=== PATIENT | female | born 1935 | race American Indian/Alaskan Native ===

== ENCOUNTER 2017-06-11 19:15 | Inpatient (IN) | payer MEDICARE ==
--- NOTE | 2017-06-11 20:51 | ED PDOC ---
Arrival/HPI - General Chief Complaint: Lower Extremity Problem/Injury Time Seen by Provider: 06/11/17 19:26 Historian: Patient - History of Present Illness Narrative History of Present Illness (Text): 06/11/17 20:40 A 81 year old female, whose past medical history include colon cancer, bowel resection, TIA, presents to the emergency department complaining of progressively worsening leg swelling over the past week. Patient was seen by PMD today, who instructed her to come in for further evaluation and possible admission. Patient notes mild discomfort but denies any recent injuries, trauma , fever, chills, nausea, vomiting, abdominal pain, chest pain, shortness of breath or any other complaints. Patient uses cane to ambulate at baseline. 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,) - Genitourinary/Gynecological Hx Genitourinary Disorders: Yes Hx Reproductive Disorders: No - Psychiatric Hx Substance Use: No - Past Surgical History Past Surgical History: No Previous - Anesthesia Hx Anesthesia Reactions: No Hx Malignant Hyperthermia: No - Suicidal Assessment Feels Threatened In Home Enviroment: No Family/Social History - Physician Review Nursing Documentation Reviewed: Yes Family/Social History: No Known Family HX Smoking Status: Never Smoked Hx Alcohol Use: No Hx Substance Use: No Hx Substance Use Treatment: No Allergies/Home Meds Allergies/Adverse Reactions: Allergies No Known Allergies Allergy (Verified 06/11/17 19:31) Home Medications: Home Meds Medication Instructions Recorded Confirmed Timolol 0.5% Ophth [Timoptic 0.5% 1 drop OP BID 12/08/13 06/11/17 Ophth Soln] Travoprost [Travatan 5 ml] 1 drop OP HS 12/08/13 06/11/17 Review of Systems - Physician Review All systems were reviewed & negative as marked: Yes - Review of Systems Constitutional: absent: Fevers, Night Sweats Respiratory: absent: SOB Cardiovascular: Edema (LE swelling). absent: Chest Pain Gastrointestinal: absent: Abdominal Pain, Nausea, Vomiting Physical Exam Vital Signs Reviewed: Yes Vital Signs Temp Pulse Resp BP Pulse Ox 06/11/17 22:26 67 16 172/80 H 99 06/11/17 21:26 68 16 166/82 H 100 06/11/17 19:31 98.8 F 79 18 198/83 H 97 Temperature: Afebrile Blood Pressure: Hypertensive Pulse: Regular Respiratory Rate: Normal Appearance: Positive for: Well-Appearing, Non-Toxic, Comfortable Pain Distress: None Mental Status: Positive for: Alert and Oriented X 3 - Systems Exam Head: Present: Atraumatic, Normocephalic Pupils: Present: PERRL Extroacular Muscles: Present: EOMI Conjunctiva: Present: Normal Mouth: Present: Moist Mucous Membranes Neck: Present: Normal Range of Motion Respiratory/Chest: Present: Clear to Auscultation, Good Air Exchange. No: Respiratory Distress, Accessory Muscle Use Cardiovascular: Present: Regular Rate and Rhythm, Normal S1, S2. No: Murmurs Abdomen: No: Tenderness, Distention, Peritoneal Signs Back: Present: Normal Inspection Upper Extremity: Present: Normal Inspection. No: Cyanosis, Edema Lower Extremity: Present: Edema (Bilateral lower extremity edema, extending to thighs), NORMAL PULSES. No: CALF TENDERNESS, Brennen's Sign Neurological: Present: GCS=15, CN II-XII Intact, Speech Normal. No: Other ( focal neurological deficits) Skin: Present: Warm, Dry, Normal Color. No: Rashes Psychiatric: Present: Alert, Oriented x 3, Normal Insight, Normal Concentration Medical Decision Making ED Course and Treatment: 06/11/17 20:40 Impression: A 81 year old female with worsening bilateral lower extremity swelling Plan: -- Duplex lower extremity ultrasound -- Chest xray -- EKG -- Labs -- Reassess and disposition Progress Notes: 06/11/17 22:07 Reviewed EKG, NSR at 68 bpm. 1st degree AV block. Non-specific ST/T wave changes. 06/11/17 22:15 Chest X-Ray reviewed, shows poor inspiratory film, questionable pulmonary vascular congestion. 06/11/17 23:08 US Duplex Lower Extremity negative for DVT. 06/11/17 23:[address] Nuno, who is aware and agrees with plan. Accepts pt in to her service. Pt will go to [facility] observation for leg edema. - Lab Interpretations Lab Results: 06/11/17 21:26 06/11/17 21:26 Lab Results 06/11/17 21:26: WBC 7.2, RBC 4.42, Hgb 12.3, Hct 37.6, MCV 85.1, MCH 27.8, MCHC 32.7, RDW 15.1 H, Plt Count 177, MPV 10.8 06/11/17 21:26: Sodium 146, Potassium 4.5, Chloride 107, Carbon Dioxide 27, Anion Gap 16, BUN 13, Creatinine 1.1, Est GFR ( Amer) 57, Est GFR (Non- Af Amer) 47, Random Glucose 109, Calcium 9.0, Total Bilirubin 0.7, AST 40 H, ALT 20, Alkaline Phosphatase 96, Lactate Dehydrogenase 688, Total Creatine Kinase 57, Troponin I < 0.01, NT-Pro-B Natriuret Pep 206, Total Protein 7.9, Albumin 4.1, Globulin 3.8, Albumin/Globulin Ratio 1.1 06/11/17 21:26: PT 11.2, INR 0.98, APTT 21.0 L I have reviewed the lab results: Yes - RAD Interpretation Radiology Orders: 06/11/17 20:17 CHEST PORTABLE [RAD] Stat DUPLEX LOWER EXTRM VEIN BILAT [US] Stat Roller Hand: ED Physician - EKG Interpretation Interpreted by ED Physician: Yes Type: 12 lead EKG - Medication Orders Current Medication Orders: Furosemide (Lasix) 40 mg IVP ONCE ONE Stop: 06/11/17 23:21 - Scribe Statement The provider has reviewed the documentation as recorded by the Scribe Radha Miranda Provider Scribe Attestation: All medical record entries made by the Scribe were at my direction and personally dictated by me. I have reviewed the chart and agree that the record accurately reflects my personal performance of the history, physical exam, medical decision making, and the department course for this patient. I have also personally directed, reviewed, and agree with the discharge instructions and disposition. Disposition/Present on Arrival - Present on Arrival Any Indicators Present on Arrival: No History of DVT/PE: No History of Uncontrolled Diabetes: No Urinary Catheter: No History of Decub. Ulcer: No History Surgical Site Infection Following: None - Disposition Have Diagnosis and Disposition been Completed?: Yes Diagnosis: Bilateral leg edema Disposition: HOSPITALIZED Disposition Time: 23:24 Patient Plan: Observation Condition: STABLE Referrals: Alannah Nuno MD [Primary Care Provider] - Follow up with primary Forms: [employer] ([employer])
[2017-06-11 21:32] LABS: HEMOGLOBIN 12.3 g/dL (12.0-16.0); MEAN CELL VOLUME 85.1 fl (80.0-105.0); MEAN CORPUSCULAR HEMOGLOBIN 27.8 pg (25.0-35.0); MEAN CORPUSCULAR HGB CONC 32.7 g/dl (31.0-37.0); MEAN PLATELET VOLUME 10.8 fl (7.0-11.0); RBC 4.42 10^6/uL (3.5-6.1); RED CELL DISTRIBUTION WIDTH 15.1 % (11.5-14.5); WHITE BLOOD COUNT 7.2 10^3/ul (4.5-11.0)
[2017-06-11 21:46] LABS: GFR AFRICAN-AMERICAN 57; GFR NON-AFRICAN AMERICAN 47
[2017-06-11 21:50] LABS: ALB/GLOB RATIO 1.1 (1.1-1.8); ALBUMIN 4.1 g/dL (3.0-4.8); ALT/SGPT 20 U/L (7-56); AST/SGOT 40 U/L (14-36); BLOOD UREA NITROGEN 13 mg/dL (7-21)
[2017-06-11 21:56] LABS: B-TYPE NATRIURETIC PEPTIDE 206 pg/mL (0-450)
[2017-06-11 22:03] LABS: TROPONIN I < 0.01 ng/mL
[2017-06-11 22:04] LABS: INR 0.98 (0.93-1.08); PROTHROMBIN TIME 11.2 SECONDS (9.4-12.5)
[2017-06-12 03:26] VITALS: BMI 41.2
--- NOTE | 2017-06-12 08:35 | RAD ---
HISTORY: medical clearance COMPARISON: 12/22/2013. FINDINGS: LUNGS: The lungs are clear. There is a linear scar in the right mid lung. PLEURA: No significant pleural effusion identified, no pneumothorax apparent. CARDIOVASCULAR: There is mild cardiomegaly. OSSEOUS STRUCTURES: No significant abnormalities. VISUALIZED UPPER ABDOMEN: Normal. OTHER FINDINGS: None. IMPRESSION: No active pulmonary disease.
--- NOTE | 2017-06-12 09:42 | US ---
HISTORY: Leg pain and swelling. Evaluate for DVT PHYSICIAN(S): Wing Baker MD. TECHNIQUE: Duplex sonography and color-flow Doppler with graded compression were used to evaluate the deep venous systems of both lower extremities. The exam is limited by body habitus and edema. The tibial veins are not well seen FINDINGS: The visualized deep venous systems of both lower extremities are sonographically normal and compressible. Normal wave forms and augmentation are seen. There is no sonographic evidence for deep venous thrombosis in the visualized segments of both lower extremities. IMPRESSION: No sonographic evidence for deep venous thrombosis in the visualized segments of both lower extremities. Limited study.
[2017-06-12 10:04] LABS: HDL CHOLESTEROL 58 mg/dL (29-60)
[2017-06-12 10:05] LABS: IRON 45 ug/dL (45-180)
[2017-06-12 10:14] LABS: LDL CHOLESTEROL 65 mg/dL (0-129)
[2017-06-12 10:15] LABS: % IRON SATURATION 14 % (20-55); TOTAL IRON BINDING CAPACITY 316 ug/dL (265-497)
--- NOTE | 2017-06-12 14:38 | CARD ---
APPROVED REPORT EKG Measurement Heart [id number] NV [id number] <Conclusion> Sinus rhythm with sinus arrhythmia with 1st degree AV block Minimal voltage criteria for LVH, may be normal variant Borderline ECG
[2017-06-12 17:16] LABS: FOLATE 12.2 ng/mL
--- NOTE | 2017-06-12 17:37 | CARD ---
APPROVED REPORT EXAM: Two-dimensional and M-mode echocardiogram with Doppler and color Doppler. Surgery/Intervention PRE-OP/ LVFX 2D DIMENSIONS Left Atrium (2D)4.7 (1.6-4.0cm)IVSd1.0 (0.7-1.1cm) LVDd5.4 (3.9-5.9cm)PWd1.1 (0.7-1.1cm) LVDs3.6 (2.5-4.0cm)FS (%) 33.2 % LVEF (%)61.4 (>50%) M-Mode DIMENSIONS Aortic Root3.40 (2.2-3.7cm)Aortic Cusp Exc.1.70 (1.5-2.0cm) Aortic Valve AoV Peak Rtmzddzz756.0cm/sAoV VTI49.8cmAO Peak GR.16mmHg LVOT Peak Ywiohcff276.0cm/sLVOT VTI30.20cmAO Mean GR.9mmHg Mitral Valve MV E Qfveffri61.6cm/sMV A Tmobwvsj77.7cm/sE/A ratio0.5 TDI Lateral E' Peak V8.29cm/sMedial E' Peak V4.68cm/sE/Lateral E'5.6 E/Medial E'10.0 Pulmonary Valve PV Peak Nammvuaq72.0cm/sPV Peak Grad.2mmHg Tricuspid Valve TR Peak Bchhlofw467et/sRAP [id number] Peak Gr.61mmHg CXSP07poOc LEFT VENTRICLE The left ventricle is normal size. There is normal left ventricular wall thickness. The left ventricular function is normal.EF-55-60% There is normal LV segmental wall motion. Transmitral Doppler flow pattern is Grade III-reversible restrictive diastolic dysfunction. No left ventricle thrombus noted on this study. There is no ventricular septal defect visualized. There is no left ventricular aneurysm. There is no mass noted in the left ventricle. RIGHT VENTRICLE The right ventricle is mildly to moderately dilated. There is normal right ventricular wall thickness. Systolic function of RV is mildly to moderately reduced. ATRIA The left atrium is mildly dilated. The right atrium size is normal. AORTIC VALVE The aortic valve is calcified but opens well. The aortic valve is mildly to moderately sclerotic. There is trace aortic regurgitation. Aortic Sclerosis Vs miold There is no aortic valvular vegetation. MITRAL VALVE The mitral valve is thickened but opens well. Mitral regurgitation is trace. There is no mitral valve stenosis. There is no evidence of mitral valve prolapse. TRICUSPID VALVE The tricuspid valve leaflets are thickened , but open well. There is moderate tricuspid regurgitation.RVSP-71 mmof hg. There is moderate pulmonary hypertension. There is no tricuspid valve stenosis. There is no tricuspid valve prolapse or vegetation. PULMONIC VALVE The pulmonic valve is mildly thickened. There is mild to moderate pulmonic valvular regurgitation. There is no pulmonic valvular stenosis. GREAT VESSELS The aortic root is normal in size. The ascending aorta is normal in size. The pulmonary artery is normal. The IVC is normal in size and collapses >50% with inspiration. PERICARDIAL EFFUSION There is no pleural effusion. There is no pericardial effusion. <Conclusion> The left ventricle is normal size. There is normal left ventricular wall thickness. The left ventricular function is normal.EF-55-60% The right ventricle is mildly to moderately dilated. Systolic function of RV is mildly to moderately reduced. There is trace aortic regurgitation. Aortic Sclerosis Vs miold Mitral regurgitation is trace. There is moderate tricuspid regurgitation.RVSP-71 mmof hg. There is moderate pulmonary hypertension. There is mild to moderate pulmonic valvular regurgitation. The IVC is normal in size and collapses >50% with inspiration. There is no pericardial effusion. No vegetation or thrombus noted.
--- NOTE | 2017-06-12 18:07 | CON ---
DATE: 06/12/2017 NEUROLOGY CONSULT CHIEF COMPLAINT: Evaluation for neuropathy. 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 No changes in sense of vision, taste or smell. She is sitting up in chair, in no acute distress, follows all commands, moves all extremities. Her lower extremities do feel swelling and there is 2+ edema. Her blood pressure is systolically mildly high than her baseline. 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 REVIEW OF SYSTEMS: A 14-point review of systems negative except as per the HPI. FAMILY HISTORY: Noncontributory. SOCIAL HISTORY: No illicit drug use, smoking or EtOH abuse. ALLERGIES: NO KNOWN DRUG ALLERGIES. MEDICATIONS: Reviewed by nurse per reconciliation sheet. PHYSICAL EXAMINATION: VITAL SIGNS: Temperature 98.6, pulse is 86, blood pressure 126/60, respiratory rate 18, oxygen saturation 99% by room air. GENERAL: The patient is sitting up in bed, in no acute distress. HEENT: Head is atraumatic and normocephalic. PERRLA. Extraocular muscles intact. NECK: Supple. No JVD. No adenopathy noted. LUNGS: Clear to auscultation. No adventitious sounds. HEART: S1, S2. Normal rate and rhythm. No murmurs, rubs, or gallops. ABDOMEN: Soft, nontender, and nondistended. Bowel sounds present. EXTREMITIES: No clubbing. No cyanosis. Peripheral pulses 2+ felt bilaterally, 2+ pedal edema bilaterally. NEUROLOGIC: The patient is alert and oriented to person, place, month, and year. Speech is fluent without any errors. Cranial nerves II through XII intact. Poor attention span, slow thought process. Motor exam: Moves all extremities equally. No pronator drift seen. Sensory exam: Light touch to pinprick, decreased at the calves bilaterally. Decreased vibration of the toes. DTRs are 2+ throughout, 1 at both knees and ankles. Coordination: Wgkiuj-nj-xzou intact. No dysmetria noted. Gait is deferred for now. LABORATORY DATA: Sodium , potassium 2.7, BUN 13, creatinine 1.1, random glucose of 109, A1c is 5.8. ASSESSMENT AND PLAN: An 81-year-old woman, history of adenocarcinoma of the transverse colon as well as gastric adenocarcinoma status post hemicolectomy, history of hypertension with bilateral carpal tunnel syndrome in the hands, who came here for worsening leg weakness over the past week and ultrasound of the lower extremities showed no deep vein thrombosis, currently she has some features of peripheral neuropathy on examination. At this time, we will recommend outpatient EMG nerve conduction study neuropathy. Continue to evaluate management of her lower extremity swelling. She is on Lasix 40 mg IV every 12. Physical therapy/occupational therapy assessment. Thank you for this consultation. Can Ulloa MD
[2017-06-12] MEDS: Latanoprost 2.5 ml Opht Soln OU SCH (21:54)
[2017-06-12] MEDS: Insulin Reg-LOW-Coverage SC SCH (22:20)
--- NOTE | 2017-06-13 02:59 | CON ---
DATE: REASON FOR CONSULTATION AND FOLLOWUP: Cardiac evaluation, admitted with bilateral lower extremity swelling, rule out CHF. BRIEF CLINICAL HISTORY: This is an 81-year-old female with past medical history significant for colon cancer, status post bowel resection 4 years ago, came in with history of right lower leg cellulitis, bitten by the mosquito and later on the skin formed and then the skin regenerated again, treated medically. No history of myocutaneous graft or skin graft who used to see Dr. Nuno, went to see, and complaining of leg swelling, so patient sent for evaluation workup. The patient denies any chest pain, shortness of breath or any palpitation though walked not much, walk with a cane. PAST MEDICAL HISTORY: Significant for leg swelling, history of skin after bitten with the mosquito and had treated medically, history of colon cancer status post colonic resection and end-to-end anastomosis 4 years ago. SOCIAL HISTORY: Denies any history of alcohol abuse. FAMILY HISTORY: Noncontributory. CURRENT MEDICATION: The patient taking eye drops, no other medications. REVIEW OF SYSTEMS: As per HPI. PHYSICAL EXAMINATION: VITAL SIGNS: Height of the patient is 5 feet 5 inches, weight of the patient is 248 and body mass index 41.3 kg per m2. Temperature afebrile, heart rate 64, blood pressure 115/59. Rest of the examination as follows: HEENT: PERRLA. Extraocular muscles intact. NECK: Supple. No carotid bruit or thyromegaly. CHEST: Clear to auscultation. HEART: S1 and S2, regular. ABDOMEN: Soft. EXTREMITIES: Clubbing and cyanosis negative. LABORATORY DATA: Blood workup as follows: WBC 7.2, hemoglobin 12.2, hematocrit 37.6, platelet count 177. PT 11.2, INR 0.98, PTT 21.0. Chemistry shows sodium 140, potassium 4.5, chloride 107, carbon dioxide 26, anion gap of 16, BUN 13, creatinine 1.1. Troponin 0.01 negative. IMPRESSION: No evidence of acute myocardial infarction, mildly obese female with body mass index 41.3 kg per m2, history of mosquito bites skin and new skin appears, history of the colon cancer admitted with swelling of the leg. Recommendation, we will get echo to assess left ventricular function. Lipid profile, TSH, hemoglobin A1c. Further recommendation of the initial workup. We will follow with you. The patient is an 81-year-old female with no significant past medical history admitted with swelling of the leg probably dependent edema, cannot rule out congestive heart failure, clinically the patient not in failure. We will get lipid profile, TSH, hemoglobin A1c and get the echo to assess left ventricular function. Further recommendation after the findings. Interim, we will continue low dose of diuretics. We will follow with you. Monitor electrolytes closely. Further recommendation, we will follow with you. Interim, continue diuretics. Thank you Dr. Nuno, for providing us the opportunity in taking care of the patient, Viry Grant. Christa Beth MD
--- NOTE | 2017-06-13 05:20 | CON ---
DATE: 06/12/2017 PULMONARY CONSULTATION REFERRING PHYSICIAN: Alannah Nuno MD. REASON FOR CONSULTATION: Pulmonary hypertension, leg swelling, probably has sleep apnea syndrome. HISTORY OF PRESENT ILLNESS: This is an 81-year-old female, known to me from previous admissions, has a known history of cardiac diastolic dysfunction, pulmonary hypertension, history of stomach cancer and intestinal cancer, history of laparotomy and hemicolectomy in the past, presented with increased leg swelling and shortness of breath and near syncopal episode. Had echocardiogram done, which shows a high PA pressure - probably diastolic dysfunction. No nausea. No vomiting. No diarrhea. PAST MEDICAL HISTORY: Cardiac diastolic dysfunction, pulmonary hypertension, diabetes, history of adenocarcinoma of the colon and also carcinoma of the stomach in the past with hemicolectomy and partial gastrectomy. ALLERGIES: NONE KNOWN. SOCIAL HISTORY: Nonsmoker, nondrinker. FAMILY HISTORY: No significant cardiopulmonary disease reported. MEDICATIONS: She is on insulin coverage, also on Lasix 40 mg twice a day, Pepcid 20 mg daily and Tylenol p.r.n. basis. REVIEW OF SYSTEMS: No headache. No rhinitis. Short of breath with minimal exertion. No chest pain. No nausea. No vomiting. No diarrhea. Does have leg swelling. PHYSICAL EXAMINATION: GENERAL: Lying in the bed, in no acute distress. VITAL SIGNS: Temp is 98, heart rate is 110/70, pulse ox 100% on room air. HEENT: Moist mucous membrane. Crowded airway. NECK: Supple. No JVD. LUNGS: Have a few scattered rhonchi. HEART: S1 and S2. ABDOMEN: Soft, nontender. No organomegaly. EXTREMITIES: Trace edema. NEUROLOGIC: Awake, alert. Follows simple command. LABORATORY DATA: Shows hemoglobin 12.3, hematocrit 37.6, WBC 7.2, platelet is 177. Sodium 146, potassium 4.5, chloride 107, bicarbonate 27, BUN 13, creatinine 1.1, glucose 145, hemoglobin A1c 5.8. Iron 45, albumin 4.1. LDH 688. Vitamin B12 less than 159. Folate 12.2. Cholesterol is 171. ProBNP 206. Blood culture, there is no growth. She had a chest x-ray done in the ER, which shows there is no infiltrate or effusion. Venous Doppler of lower extremity, negative for DVT. IMPRESSION AND PLAN: Cardiomyopathy, mostly diastolic dysfunction with severe pulmonary hypertension, may have a component of sleep apnea syndrome, history of hemicolectomy and partial gastrectomy secondary to cancer, ventral hernia repair in the past. Spoke to family at bedside. All the questions answered. 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 Need sleep study upon discharge as outpatient. Thank you and we will follow with you. Christa Wilson MD
[2017-06-13 07:43] LABS: HEMOGLOBIN 10.7 g/dL (12.0-16.0); MEAN CORPUSCULAR HEMOGLOBIN 26.8 pg (25.0-35.0); MEAN CORPUSCULAR HGB CONC 31.9 g/dl (31.0-37.0); MEAN PLATELET VOLUME 9.6 fl (7.0-11.0); RBC 3.99 10^6/uL (3.5-6.1); WHITE BLOOD COUNT 7.4 10^3/ul (4.5-11.0)
[2017-06-13 07:53] LABS: CALCIUM 8.7 mg/dL (8.4-10.5)
[2017-06-13] MEDS: Insulin Reg-LOW-Coverage SC SCH ×3 (08:14→16:35)
[2017-06-13] MEDS ORDERED: Iron Sucrose 100 mg/5 ml Inj IVP SCH (10:00)
--- NOTE | 2017-06-13 10:14 | HP ---
CHIEF COMPLAINT: Swelling of the lower extremity and shortness of breath. HISTORY OF PRESENT ILLNESS: Ms. Viry Grant, an 81-year-old female with past medical history of colon cancer, bowel resection, TIA, came to the Emergency Department complaining of progressively worsening swelling of the leg over the past few days. The patient came yesterday in my office and I sent her to [facility] for further evaluation. The patient is very noncompliant. She will come in the office after every two years with multiple complaints. As outpatient, received all workups many times; the patient was given list of the gastroenterologists and cardiologists for Pap smear and neurologists, but the patient never went. The patient does not have fever. No chills. No nausea or vomiting. No abdominal pain, but is still having shortness of breath. Uses cane for ambulation and shortness of breath is more on walking. 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 FAMILY HISTORY: Father and mother, noncontributory. HABITS: Never smoked. No drug. No ethanol. ALLERGIES: THE PATIENT IS NOT ALLERGIC WITH ANY MEDICATION. HOME MEDICATIONS: Only eye drops. REVIEW OF SYSTEMS: The patient is seen and examined in the bedside in her room. Shortness of breath is better. Swelling of the leg is getting better, but still swollen. No nausea, vomiting, diarrhea. No hematuria, hematochezia. No headache. No dizziness. No fever. No chills. PHYSICAL EXAMINATION: VITAL SIGNS: Temperature 98.8; pulse 79; respiratory rate 18; blood pressure 198/83, repeat is 172/80; pulse oximetry 97. HEENT: Head normocephalic, atraumatic. Eyes PERRLA. Extraocular muscles intact. Conjunctivae clear. Nose patent. Mucous membrane moist. NECK: Supple. No carotid bruit. No JVD or thyromegaly. CHEST: Bilaterally symmetrical. HEART: S1 and S2 positive. LUNGS: Clear to auscultation. ABDOMEN: Soft. Bowel sounds positive. No organomegaly. EXTREMITIES: Positive edema. NEUROLOGICAL: The patient is awake, alert. Follows simple command. LABORATORY DATA: White blood cells 7.2, hemoglobin 12.3, hematocrit 37.6, platelets 177. Sodium 146, potassium 4.5, BUN 30, creatinine 1.1, glucose 109. ASSESSMENT AND PLAN: Ms. Viry Grant, an 81-year-old female, came with bilateral swelling of the leg, rule out congestive heart failure, the patient is very noncompliant, history of adenocarcinoma of transverse colon, history of gastric adenocarcinoma, status post hemicolectomy, laparotomy, hypertension, carpal tunnel syndrome. Seen by Dr. Can Ulloa. The patient has weakness in both the hands and according to her, she has feelings of ants in her hand. Ultrasound of the lower extremities done, shows no deep vein thrombosis. According to neurologist, the patient has peripheral neuropathy on examination. Need outpatient EMG nerve conduction study for neuropathy. Continue present treatment. The patient is started on Lasix. Physical therapy, occupational therapy. Waiting for regional sales director, manager disaster recovery and artillery officer input. Started the patient on sliding scale. Has new-onset diabetes mellitus. Lasix. Dr. Wilson started the patient on metoprolol and Zestril. Recent blood pressure is now 110/70, getting better. The patient has obesity, very noncompliant. Never did cardiac workup and not recently did gastrointestinal workup. Gastrointestinal and deep venous thrombosis prophylaxis. We will start Neurontin for peripheral neuropathy and carpal tunnel syndrome. Repeat labs. We will follow up. Alannah Nuno MD
--- NOTE | 2017-06-13 11:43 | CON ---
DATE 06/12/2017: REASON FOR CONSULTATION: History of gastric cancer and colon cancer followup. HISTORY OF PRESENT ILLNESS: This is an 81-year-old patient who had right hemicolectomy for carcinoma of the colon in 2013, also had adenocarcinoma of the stomach, status post partial gastrectomy at the same time in 2013, noncompliant, did not follow up, presented with leg swelling to the primary physician's office and admitted for further evaluation. The patient denies any history of bleeding per rectum. No vomiting. The patient has progressive swelling of the legs. The patient also complains of weakness of the lower extremities. OTHER PAST MEDICAL HISTORY: Significant as above. The patient has right colon T3N0 lesion. The patient had right hemicolectomy, had gastric cancer. The patient had partial gastrectomy; adenocarcinoma, moderately differentiated no lymphovascular involvement noticed. REVIEW OF SYSTEMS: All 14-point systems reviewed, positive as above. FAMILY HISTORY: Noncontributory. SOCIAL HISTORY: Denies smoking. No alcohol. ALLERGIES: NO KNOWN DRUG ALLERGIES. PHYSICAL EXAMINATION GENERAL: Patient is lying on the bed, not in acute distress. VITAL SIGNS: Blood pressure 126/60, respirations 18, afebrile, pulse 86. HEENT: Atraumatic, anicteric. NECK: Supple. HEART: S1 and S2 heard. LUNGS: Bilateral air entry present. ABDOMEN: Soft. Surgical scar noticed. EXTREMITIES: No edema. No cyanosis. NEUROLOGIC: Alert and oriented. Moves all the extremities. Bilaterally pitting edema present. LABORATORY DATA: Hemoglobin 12.3, hematocrit 37.6, WBC 7.2, platelets 177. Chemistry is essentially unremarkable. IMPRESSION: This 81-year-old patient with history of gastric carcinoma and colon carcinoma, T3N0 lesion in 2013 and now presents with leg swelling and weakness. Denies any bleeding. No abdominal complaints. The patient did have a PET imaging done in September, no significant tumor recurrence noticed. RECOMMENDATIONS: 1. We will consider repeating a CT of the abdomen and pelvis with p.o. contrast. The patient's GFR is only 57, we will consider CT with p.o. contrast. 2. The patient would also benefit from the esophagogastroduodenoscopy and colonoscopy and also consider PET scan. patient is admitted with leg swelling and leg weakness. 3. Followup tumor marker We will discuss again with Dr. Nuno and also family members before contemplating the extent of the evaluation in view of her age and comorbidities. The patient is relatively asymptomatic. It is amazing to see how the patient is doing relatively well compared to the 2 carcinomas diagnosed in 2014 with a T3 lesion. Thank you very much for allowing us to participate in the care of the patient. Jaz De La Paz MD MTDD
[2017-06-13] MEDS: Latanoprost 2.5 ml Opht Soln OU SCH (21:43)
--- NOTE | 2017-06-13 22:33 | PN ---
DATE: REASON FOR CONSULTATION: Cardiac evaluation, admitted with bilateral lower extremity swelling, rule out CHF. The patient denies any chest pain, shortness of breath or any palpitation. PHYSICAL EXAMINATION: GENERAL: Not in apparent distress. VITAL SIGNS: Temperature afebrile, heart rate 75, blood pressure 110/70. HEENT: PERRLA. Extraocular muscles intact. NECK: Supple. No carotid bruit or thyromegaly. CHEST: Clear to auscultation. HEART: S1 and S2 regular. ABDOMEN: Soft. EXTREMITIES: Clubbing and cyanosis negative. LABORATORY DATA: Blood workup as follows; WBC 11.5, hemoglobin 10.3, hematocrit 33.5, platelet count 193. Chemistry showed sodium 142, potassium 4, chloride 103, CO2 of 32, anion gap of 12, BUN 13, creatinine 1.2. Patient had echocardiography done yesterday that revealed ejection fraction 55% to 60%, right ventricle with mild to moderate with trace aortic regurgitation, aortic sclerosis versus mild aortic stenosis, trace mitral regurgitation, moderate tricuspid regurgitation, RV systolic pressure of 71, moderate pulmonary hypertension, [id number] pulmonic insufficiency. IMPRESSION: No evidence of acute myocardial infarction, bilateral leg swelling, pulmonary hypertension, preserved left ventricular function, ejection fraction is 55% to 60%, aortic sclerosis versus mild aortic stenosis, trace aortic regurgitation, trace mitral regurgitation, moderate tricuspid regurgitation, right ventricular systolic pressure is 71. RECOMMENDATION: Continue intravenous Lasix. Patient is on beta-smiley and lisinopril. Monitor for heart rate and monitor for insufficiency. We will follow with you. CVS status is stable. Thank you Dr. Nuno for providing us the opportunity in taking care of the patient, Viry Grant. Christa Beth MD
--- NOTE | 2017-06-14 00:13 | PN ---
DATE: 06/13/2017 PULMONARY PROGRESS NOTE REFERRING PHYSICIAN: Alannah Nuno MD SUBJECTIVE: She is out of bed to chair, feels better today. No headache. No rhinitis. No chest pain. No nausea. No vomiting. No diarrhea. Still has leg swelling. OBJECTIVE: GENERAL: In no acute distress. VITAL SIGNS: Temp is 98, heart rate is 58, respiratory rate is 20, blood pressure 123/62, pulse ox 92% on room air. HEENT: Moist mucous membrane. Crowded airway. NECK: Supple. No JVD. LUNGS: Have a fair airflow with rhonchi. HEART: S1 and S2. ABDOMEN: Soft, nontender. No organomegaly. EXTREMITIES: Does have edema. NEUROLOGIC: Awake, alert. Follows simple command. MEDICATIONS: She is on insulin coverage, Lasix 40 mg twice a day, metoprolol tartrate 12.5 mg twice a day, gabapentin 400 mg three times a day, Pepcid 20 mg at bedtime, Tylenol p.r.n., vitamin B12 of 1000 mcg daily and Zestril 2.5 mg daily. LABORATORY DATA: Shows hemoglobin 10.7, hematocrit 33.5, WBC 7.4, platelet is 193. Sodium 142, potassium 4, chloride 103, bicarbonate 32, BUN 13, creatinine 1.2, glucose is 103, calcium is 8.7, phosphorus 3.9 and magnesium 2. TSH is 1.27. IMPRESSION AND PLAN: Cardiomyopathy mostly diastolic dysfunction with severe pulmonary hypertension, may have sleep apnea syndrome, history of laparotomy with hemicolectomy, history of partial gastrectomy, had colon cancer as well as stomach cancer. Pulmonary point of view, she is doing okay. Continue diuretics, afterload reducers, beta smiley, being followed by GI. Followup hemoglobin and hematocrit closely. CT of the abdomen and pelvis has been ordered. Thank you and we will follow with you. Christa Wilson MD
[2017-06-14 07:53] LABS: HEMOGLOBIN 10.6 g/dL (12.0-16.0); MEAN CELL VOLUME 83.9 fl (80.0-105.0); MEAN CORPUSCULAR HGB CONC 32.2 g/dl (31.0-37.0); MEAN PLATELET VOLUME 9.7 fl (7.0-11.0); RBC 3.92 10^6/uL (3.5-6.1); WHITE BLOOD COUNT 6.3 10^3/ul (4.5-11.0)
[2017-06-14 08:18] LABS: ALB/GLOB RATIO 1.2 (1.1-1.8); ALBUMIN 3.6 g/dL (3.0-4.8); CALCIUM 8.6 mg/dL (8.4-10.5)
[2017-06-14] MEDS: Insulin Reg-LOW-Coverage SC SCH ×4 (08:38→22:15)
[2017-06-14] MEDS ORDERED: MethylPREDNISolone Depo 40 mg/ml Inj IM ONE (09:12)
[2017-06-14] MEDS ORDERED: Bupivacaine 0.5% Inj(30mL) IJ ONE (09:12)
--- NOTE | 2017-06-14 11:33 | PN ---
DATE: 06/14/2017 PULMONARY PROGRESS NOTE REFERRING PHYSICIAN: Alannah Nuno MD. SUBJECTIVE: She is out of bed to chair. Night was unremarkable. Gets short of breath with exertion. No headache. No rhinitis. No nausea. No vomiting. No diarrhea. Still has leg swelling. OBJECTIVE: GENERAL: In no acute distress. VITAL SIGNS: Temp is 98, heart rate 56, respiratory rate is 20, blood pressure 146/61, pulse ox 97% on room air. HEENT: Moist mucous membrane. Small oral cavity. Crowded airway. NECK: Supple. No JVD. LUNGS: Have a fair airflow with rhonchi. HEART: S1 and S2. ABDOMEN: Soft and nontender. No organomegaly. EXTREMITIES: Has edema. NEUROLOGICAL: Awake and alert. Follows simple command. LABORATORY DATA: Shows hemoglobin 10.6, hematocrit 32.9, WBC 6.3, platelet is 188. INR 0.98, PTT 21. Sodium 139, potassium 4.2, chloride is 101, bicarbonate is 28, BUN 20, creatinine 1.2, glucose 95, calcium 8.6, AST 22, ALT 26, alk phos is 78, albumin is 3.6. MEDICATIONS: She is on insulin coverage, Lasix 40 mg twice a day, metoprolol tartrate is at 12.5 mg twice a day, gabapentin 400 mg three times a day, Pepcid 20 mg at bedtime, vitamin B12 of 1000 mcg IM daily, Zestril 2.5 mg daily. IMPRESSION AND PLAN: Cardiomyopathy, diastolic dysfunction with severe pulmonary hypertension, may have sleep apnea syndrome, history of laparotomy with hemicolectomy in the past, partial gastrectomy, has a colon cancer as well as gastric cancer in the past. Pulmonary point of view, she is doing okay. Continue diuretics, afterload reducers, beta smiley. Gastroenterology followup. Thank you and we will follow with you. Christa Wilson MD
--- NOTE | 2017-06-14 15:25 | RAD ---
PROCEDURE: Bilateral knees dated 06/14/2017. Upright AP views of the right and left knees performed. Lateral views are not performed and therefore evaluation of the patellofemoral compartments limited HISTORY: Knee pain. COMPARISON: None. FINDINGS: Fracture nor dislocation BONES: No evidence of acute displaced fracture nor dislocation. The osseous structures appear intact JOINTS: Significant bilateral tricompartmental degenerative osteoarthritis most severely affecting the medial compartments right greater than left. Marginal on medial and lateral osteophyte formation present. SOFT TISSUES: There is a coarse rounded/on elliptical shaped calcification overlying the soft tissues adjacent to the superolateral margin of the left patella. This may be within the suprapatellar bursa though due to the lack of on lateral view exact location cannot be determined. JOINT EFFUSION: Joint effusion on not excluded due to the lack of lateral views. OTHER FINDINGS: None. IMPRESSION: Significant bilateral tricompartmental osteoarthritis most severely affecting the medial compartments right greater than left. No evidence of acute displaced fracture nor dislocation.
--- NOTE | 2017-06-14 15:27 | RAD ---
PROCEDURE: Pelvis and bilateral hips dated 06/14/2017. Frontal view of the pelvis and frontal as well as frogleg lateral views both hips performed. HISTORY: Hip pain. COMPARISON: No prior study available comparison. FINDINGS: BONES: No evidence of acute displaced fracture nor dislocation. The osseous structures appear intact. Both femoral heads appropriately located within their respective acetabula. JOINTS: Degenerative osteoarthritis both hip joints. SOFT TISSUES: Calcified pelvic phleboliths are present. There is a rounded - elliptical shaped radiopaque density which overlies the lower true pelvis. This could be bowel related type artifact however possibility of urine calcification not excluded. OTHER FINDINGS: Note made of degenerative spondylosis lower lumbosacral spine. IMPRESSION: No evidence of acute displaced fracture nor dislocation. Arthritic changes both hip joints.
[2017-06-14] MEDS: Latanoprost 2.5 ml Opht Soln OU SCH (22:19)
[2017-06-15] MEDS: Insulin Reg-LOW-Coverage SC SCH ×4 (07:55→21:46)
[2017-06-15 08:08] LABS: HEMOGLOBIN 10.4 g/dL (12.0-16.0); MEAN CELL VOLUME 84.3 fl (80.0-105.0); MEAN CORPUSCULAR HEMOGLOBIN 27.2 pg (25.0-35.0); MEAN CORPUSCULAR HGB CONC 32.3 g/dl (31.0-37.0); MEAN PLATELET VOLUME 10.3 fl (7.0-11.0); RBC 3.82 10^6/uL (3.5-6.1); RED CELL DISTRIBUTION WIDTH 14.8 % (11.5-14.5); WHITE BLOOD COUNT 7.3 10^3/ul (4.5-11.0)
[2017-06-15 08:53] LABS: CALCIUM 8.5 mg/dL (8.4-10.5)
[2017-06-15 19:54] LABS: URINE BILIRUBIN NEGATIVE (NEGATIVE); URINE BLOOD NEGATIVE (NEGATIVE); URINE GLUCOSE (UA) NEGATIVE (NEGATIVE); URINE LEUKOCYTE ESTERASE SMALL Leu/uL (NEGATIVE); URINE PROTEIN NEGATIVE mg/dL (<30 mg/dL); URINE UROBILINOGEN 0.2 E.U./dL (<1 E.U./dL)
[2017-06-15 20:05] LABS: URINE APPEARANCE CLEAR (CLEAR)
[2017-06-15] MEDS: Latanoprost 2.5 ml Opht Soln OU SCH (21:45)
--- NOTE | 2017-06-15 23:27 | PN ---
DATE: 06/15/2017 PULMONARY PROGRESS NOTE REFERRING PHYSICIAN: Alannah Nuno MD. SUBJECTIVE: She is sitting up in the chair. Night was unremarkable. No headache. No rhinitis. No chest pain. Seen by Orthopedic today for right knee pain. Still has leg swelling. OBJECTIVE: GENERAL: In no acute distress. VITAL SIGNS: Temperature is 98, heart rate is 53, respiratory rate is 20, blood pressure 121/96, pulse ox 98% on room air. HEENT: Moist mucous membrane. Crowded airway. NECK: Supple. No JVD. LUNGS: Have fair airflow with rhonchi. HEART: S1 and S2. ABDOMEN: Soft, nontender. No organomegaly. EXTREMITIES: Does have edema of the both lower extremities. NEUROLOGIC: Awake, alert, and follows simple command. MEDICATIONS: She is on Lasix 40 mg twice a day, metoprolol tartrate 12.5 mg twice a day, Neurontin 400 mg three times a day, Pepcid 20 mg at bedtime, Tylenol p.r.n., vitamin B12 at 1000 mcg weekly, and Zestril 2.5 mg daily. LABORATORY DATA: Shows hemoglobin is 10.4, hematocrit 32.2, WBC 7.3, platelet count is 183. Sodium 140, potassium 3.9, chloride 101, bicarbonate is 29, BUN 23, creatinine 1.4, glucose is 90, calcium is 8.5. IMPRESSION AND PLAN: Cardiomyopathy with diastolic dysfunction, severe pulmonary hypertension, may have sleep apnea syndrome, history of laparotomy for hemicolectomy with gastrectomy, had both colon and gastric cancer in the past. Being followed by GI. Pulmonary point of view, she is doing well. May need to start her on Letairis and sildenafil as outpatient after pulmonary function test and attending sleep study. Fall precautions. Thank you and we will follow with you. Christa Wilson MD
--- NOTE | 2017-06-16 08:37 | CON ---
DATE: 06/15/2017 CONSULT AND PROCEDURE REPORT LOCATION: An 81-year-old female in room 571, bed 1. HISTORY OF PRESENT ILLNESS: The patient was seen a couple of days ago, ordered x-rays of both knees that were painful. shows tremendous osteoarthritis mostly of the medial joint line of both knees and that she has need for injection of both knees, but we adjusted the right knee today with Depo-Medrol and Marcaine that gave her some temporary relief and so she can walk better. Eventually, she is going to need bilateral knee replacement if she consents to that, that would help get rid of her pain. While she was in x-ray, we did the hips, which showed no evidence of osteoarthritis. Main thing is severe osteoarthritis of both knees, right worse than the left. Then, we injected right knee today with Depo-Medrol and Marcaine with some relief. We sent her for therapy for exercise of the lower extremities and ambulate with a walker. FINAL DIAGNOSES: Advanced osteoarthritis, bilateral knees, right worse than the left and no arthritis of the hips. Adeel Odom DO
--- NOTE | 2017-06-16 09:13 | PN ---
DATE: 06/14/2017 ORTHOPEDIC REPORT SUBJECTIVE: I was asked to see the patient with Dr. Polanco this morning and thus she came in the hospital on 06/11/2017 and she complains of bilateral knee pain and hip pain. She is sitting up at the edge of the bed after eating breakfast and I am going to move her knees around her, which is limited. She got some mild swelling, but it looks like she gets more stiffness in the hip than the knees. I am going to order x-rays of both knees and x-rays of both hips pelvis. She might have some underlying osteoarthritis on the x-rays determine whether she needed Depo-Medrol and Marcaine and cortisone injection, bilateral knee pain and bilateral hip pain, and will work her up with bilateral hip and knee x-rays and will start physical therapy for ambulation with a walker. There is no harm on doing that. Adeel Odom DO
--- NOTE | 2017-06-16 09:56 | PN ---
DATE: 06/15/2017 SUBJECTIVE: Patient is seen and examined on the bedside, looking comfortable, sitting on the chair. Swelling of the leg is better. No nausea, vomiting, diarrhea. No headache or dizziness. PHYSICAL EXAMINATION: VITAL SIGNS: Temperature 98, heart rate 56, respiratory rate 20, blood pressure 142/61, pulse oximetry 97% on room air. HEENT: Head normocephalic, atraumatic. Eyes PERRLA. Extraocular muscles intact. Conjunctivae clear. Nose patent. Mucous membrane moist. NECK: Supple. No carotid bruit. No JVD or thyromegaly. CHEST: Bilaterally symmetrical. HEART: S1 and S2 positive. LUNGS: Clear to auscultation. ABDOMEN: Soft. Bowel sounds present. No organomegaly. EXTREMITIES: Trace edema. No cyanosis. NEUROLOGICAL: The patient is awake and alert. Moving all 4 extremities. No focal deficits. MEDICATIONS: Insulin coverage, Lasix, metoprolol, gabapentin, Pepcid, B12, Restoril. LABORATORY DATA: Hemoglobin 10.6, hematocrit 32.5, platelets noted , white blood cells 6.3. INR is 0.098. ASSESSMENT: Cardiomyopathy, diastolic dysfunction, hypertension, pulmonary hypertension, sleep apnea syndrome, history of laparotomy with hemicolectomy, Gastrointestinal and deep venous thrombosis prophylaxis. Repeat labs. We will follow up. Alannah Nuno MD LARS
--- NOTE | 2017-06-16 10:35 | PN ---
DATE: 06/13/2017 SUBJECTIVE: The patient was seen and examined at bedside, sitting on the chair. Swelling of the leg is getting better, but still there. Her son and granddaughter are sitting on the bedside as well. discussion done and all questions answered. No fever, no chills. Getting very fatigue and tired, having numbness in both hands. No headache, no dizziness. PHYSICAL EXAMINATION: VITAL SIGNS: Temperature 98, heart rate 58, respiratory rate 20, blood pressure 122/62, pulse oximetry noted on room air. HEENT: Head is normocephalic and atraumatic. Eyes, PERRLA. Extraocular muscles intact. Conjunctivae clear. Nose patent. Mucous membranes are moist. NECK: Supple. No carotid bruit. No JVD or thyromegaly. CHEST: Bilaterally symmetrical. HEART: S1 and S2 positive. LUNGS: Clear to auscultation. ABDOMEN: Soft. Bowel sounds are present. No organomegaly. EXTREMITIES: No edema, no cyanosis. NEUROLOGIC: The patient is awake and alert, moving all 4 extremities. No focal deficits. She follows simple commands. MEDICATIONS: Insulin, Lasix, metoprolol, gabapentin, Pepcid, Tylenol, vitamin B12, Zestril. LABORATORY DATA: Hemoglobin 10.7, hematocrit 33.5, white blood cells 7.4, platelet 193. Sodium 142, potassium 4, BUN 13, creatinine 1.2, glucose is 103, TSH is 1.27. ASSESSMENT AND PLAN: Ms. Viry Grant is an 81-year-old lady with multiple medical problems, cardiomyopathy most likely diastolic with severe pulmonary hypertension, sleep apnea syndrome, laparotomy with hemicolectomy in the past by Dr. Channing Berrios, partial gastrectomy, had colon cancer as well as stomach cancer. Continue diuretics, afterload reduction and beta blockers. Being followed by GI, Pulmonary, Cardiology and Neurology. Will follow up H and H. CT of the abdomen and pelvis has been ordered. Discussion done with Dr. De La Paz. The patient is to need endoscopy and colonoscopy. We will prepare over the weekend. The patient has history of constipation , so preparation will take time. The patient has bilateral numbness of hands. Neurologist is on the case. We will call Orthopedic consult doctor for carpal tunnel syndrome. Repeat labs. Out of bed physical therapy. We will follow up. Alannah Nuno MD [facility] # [id number] MTDIgnacio
[2017-06-16] MEDS: Insulin Reg-LOW-Coverage SC SCH ×3 (10:40→18:15)
[2017-06-16] MEDS ORDERED: Peg-Electrolyte Oral Soln 4L (Golytely) PO ONE (11:20)
[2017-06-16] MEDS ORDERED: Bupivacaine 0.5% Inj(30mL) IJ ONE (14:25)
[2017-06-16] MEDS ORDERED: MethylPREDNISolone Depo 40 mg/ml Inj IM ONE (14:25)
--- NOTE | 2017-06-16 14:49 | PN ---
DATE: 06/16/2017 LOCATION: Room 571, bed 1. I was asked to see the patient by Dr. Nuno because she has a possible history of carpal tunnel syndrome of the left versus right hand, but when I saw her today, the musculature of the hand feels with minimal atrophy risk for carpal tunnel in the hospital with possibility of that could make the swelling worse especially after cortisone shot and she does feel better with cortisone shot to the right knee arthritis, that need to be done in the left knee as well because the arthritis is significant so I will let her rest today. I do not want to aggravate her blood sugar too much, so I could evaluate the carpal tunnel better in the office when she is free of all these ID that could cause swelling of the hand. She has no appreciable numbness of the hand when I touch her, so we will follow the carpal tunnel as an outpatient. If she wants, I can inject her left knee with Depo-Medrol in a day or two, that also could be done as an outpatient too. We will just depend on physical therapy right now to get her moving for that bad arthritis. Adeel Odom DO
--- NOTE | 2017-06-16 17:56 | CP.PCM.PN ---
<ParulEmiliano - Last Filed: 06/16/17 17:45> Subjective - Date & Time of Evaluation Date of Evaluation: 06/16/17 Time of Evaluation: 09:25 - Subjective Subjective: GI Progress note. Dr. De La Paz Pt seen and examined at bedside. No acute events overnight. Denies any N/V/D. No abd pain. No bleeding. No new complaints. Objective - Vital Signs/Intake and Output Vital Signs (last 24 hours): Temp Pulse Resp BP Pulse Ox 97.6 F 53 L 20 131/68 99 06/16/17 14:00 06/16/17 14:00 06/16/17 14:00 06/16/17 14:00 06/16/17 14:00 Intake and Output: 06/16/17 06/16/17 06:59 18:59 Intake Total 360 Balance 360 - Medications Medications: Current Medications Acetaminophen (Tylenol 325mg Tab) 650 mg PO Q4H PRN PRN Reason: pain fever Cyanocobalamin (Vitamin B12 1000 Mcg/Ml Inj) 1,000 mcg IM DAILY [facility] Last Admin: 06/16/17 10:42 Dose: 1,000 mcg Famotidine (Pepcid) 20 mg PO HS [facility] Last Admin: 06/15/17 21:45 Dose: 20 mg Furosemide (Lasix) 40 mg IVP Q12 [facility] Last Admin: 06/16/17 10:42 Dose: 40 mg Gabapentin (Neurontin) 400 mg PO TID [facility] PRN Reason: Protocol Last Admin: 06/16/17 13:52 Dose: 400 mg Insulin Human Regular (Humulin R Low) 0 units SC ACHS [facility] PRN Reason: Protocol Last Admin: 06/16/17 11:44 Dose: Not Given Latanoprost (Xalatan Opht) 1 ml OU HS [facility] Last Admin: 06/15/17 21:45 Dose: 1 ml Lisinopril (Zestril) 2.5 mg PO DAILY [facility] Last Admin: 06/16/17 10:41 Dose: 2.5 mg Metoprolol Tartrate (Lopressor) 12.5 mg PO BID [facility] Last Admin: 06/16/17 10:42 Dose: 12.5 mg Timolol Maleate (Timoptic 0.5% Ophth Soln) 1 drop OD BID [facility] Last Admin: 06/16/17 10:45 Dose: 1 drop - Labs Labs: 06/15/17 07:30 06/15/17 07:30 PT 11.2 SECONDS (9.4-12.5) 06/11/17 21:26 INR 0.98 (0.93-1.08) 06/11/17 21:26 APTT 21.0 Seconds (25.1-36.5) L 06/11/17 21:26 - Constitutional Appears: Well, Non-toxic, No Acute Distress - Head Exam Head Exam: ATRAUMATIC, NORMAL INSPECTION, NORMOCEPHALIC - Eye Exam Eye Exam: EOMI - ENT Exam ENT Exam: Mucous Membranes Moist - Respiratory Exam Respiratory Exam: NORMAL BREATHING PATTERN. absent: Accessory Muscle Use, Respiratory Distress - Cardiovascular Exam Cardiovascular Exam: RRR. absent: JVD - GI/Abdominal Exam GI & Abdominal Exam: Soft. absent: Distended, Firm, Guarding, Tenderness, Mass , Rebound - Extremities Exam Extremities Exam: Pedal Edema - Neurological Exam Neurological Exam: Alert, Awake, Oriented x3 - Skin Skin Exam: Dry, Intact, Warm Assessment and Plan - Assessment and Plan (Free Text) Assessment: 81yo F with PMHx of Gastric CA s/p partial gastrectomy and Colon CA s/p right hemicolectomy. Here with progressive swelling, weakness of legs - No significant evidence of tumor recurrence Plan: - To Endo for EGD/Colonoscopy tomorrow, 06/17 - CLD now. NPO after breakfast tomorrow - Bowel prep: Golytely - Consider PET scan Further recs as per Dr. Brain Teran PGY1 <Jaz De La Paz V - Last Filed: 06/16/17 23:50> Objective - Vital Signs/Intake and Output Vital Signs (last 24 hours): Temp Pulse Resp BP Pulse Ox 97.7 F 50 L 16 135/73 99 06/16/17 22:41 06/16/17 22:41 06/16/17 22:41 06/16/17 22:41 06/16/17 22:41 - Medications Medications: Current Medications Acetaminophen (Tylenol 325mg Tab) 650 mg PO Q4H PRN PRN Reason: pain fever Cyanocobalamin (Vitamin B12 1000 Mcg/Ml Inj) 1,000 mcg IM DAILY [facility] Last Admin: 06/16/17 10:42 Dose: 1,000 mcg Famotidine (Pepcid) 20 mg PO HS [facility] Last Admin: 06/16/17 21:53 Dose: 20 mg Furosemide (Lasix) 40 mg IVP Q12 [facility] Last Admin: 06/16/17 21:53 Dose: 40 mg Gabapentin (Neurontin) 400 mg PO TID [facility] PRN Reason: Protocol Last Admin: 06/16/17 18:14 Dose: 400 mg Insulin Human Regular (Humulin R Low) 0 units SC ACHS [facility] PRN Reason: Protocol Last Admin: 06/16/17 18:15 Dose: Not Given Latanoprost (Xalatan Opht) 1 ml OU HS [facility] Last Admin: 06/16/17 21:52 Dose: 1 ml Lisinopril (Zestril) 2.5 mg PO DAILY [facility] Last Admin: 06/16/17 10:41 Dose: 2.5 mg Metoprolol Tartrate (Lopressor) 12.5 mg PO BID [facility] Last Admin: 06/16/17 18:14 Dose: Not Given Timolol Maleate (Timoptic 0.5% Oph Soln) 1 drop OD BID [facility] Last Admin: 06/16/17 18:14 Dose: 1 drop - Labs Labs: 06/15/17 07:30 06/15/17 07:30 PT 11.2 SECONDS (9.4-12.5) 06/11/17 21:26 INR 0.98 (0.93-1.08) 06/11/17 21:26 APTT 21.0 Seconds (25.1-36.5) L 06/11/17 21:26 Attending/Attestation - Attestation I have personally seen and examined this patient.: Yes I have fully participated in the care of the patient.: Yes I have reviewed all pertinent clinical information, including history, physical exam and plan: Yes Notes (Text): This is an addendum to GI progress report dictated by the [facility].The patient was seen and examined earlier. Medical records, lab studies, imagings were reviewed. Last 24 hours events reviewed. Agreed with the above treatment plan as outlined in [facility] 's notes the with the addition of the following 06/16/17 23:50
--- NOTE | 2017-06-16 18:01 | PN ---
DATE: REASON FOR CONSULTATION AND FOLLOWUP: Cardiac evaluation, admitted with bilateral lower extremity swelling, rule out CHF. SUBJECTIVE: The patient denies any chest pain, shortness of breath, or any palpitations. PHYSICAL EXAMINATION: GENERAL: Not in any apparent distress. VITAL SIGNS: Temperature afebrile, heart rate 60, blood pressure 139/70. HEENT: PERRLA. Extraocular muscles intact. NECK: Supple. No carotid bruit or thyromegaly. CHEST: Clear to auscultation. HEART: S1 and S2, regular. ABDOMEN: Soft. EXTREMITIES: Clubbing and cyanosis negative. LABORATORY DATA: Blood workup as follows; WBC 7.2, hemoglobin 10.5, hematocrit 32.2, platelet count 183. Chemistry showed sodium 140, potassium 3.9, chloride 101, carbon dioxide 20, anion gap of 14. BUN 23, creatinine 2.4. IMPRESSION: Obesity, body mass index of 41.3 kg/m2; swelling of the leg improving; and no evidence of congestive heart failure. The patient's last echocardiography done day before yesterday that is 06/12/2017, that showed ejection fraction 55% to 60%, right ventricle mild to moderately dilated, trace aortic regurgitation, aortic sclerosis versus mild aortic stenosis, trace mitral regurgitation, moderate tricuspid regurgitation, right ventricular systolic pressure of 71 consistent with moderate pulmonary hypertension, mild to moderate pulmonary insufficiency, no evidence of acute myocardial infarction. RECOMMENDATIONS: Continue gentle diuretics. Monitor electrolytes. Continue low-dose beta-blockers, the patient is already on low dose beta-smiley. Continue low-dose KAREN inhibitors. We will follow with you. Thank you Dr. Nuno for providing us the opportunity in taking care of Viry Grant. Christa Beth MD
[2017-06-16] MEDS: Latanoprost 2.5 ml Opht Soln OU SCH (21:52)
--- NOTE | 2017-06-17 00:33 | PN ---
DATE: 06/16/2017 PULMONARY PROGRESS NOTE REFERRING PHYSICIAN: Alannah Nuno MD SUBJECTIVE: The patient is sitting up in the chair. Night was unremarkable. No headache. No rhinitis. No cough or sputum production. Breathing is better. Still having lower extremity discomfort and swelling. OBJECTIVE: GENERAL: No acute distress. VITAL SIGNS: Temperature is 98, heart rate 54, respiratory rate is 20, blood pressure 131/68, pulse ox is 99% on room air. HEENT: Moist mucous membranes. Crowded airway. Mallampati score is 4. NECK: Supple. No JVD. LUNGS: Diffused scattered rhonchi. HEART: S1 and S2. ABDOMEN: Soft and nontender. EXTREMITIES: Has edema. NEUROLOGIC: Awake and follow simple commands. MEDICATIONS: She is on Lasix 40 mg twice a day, metoprolol tartrate 12.5 mg twice a day, Neurontin 400 mg three times a day, Pepcid 20 mg daily, Tylenol p.r.n., Vitamin B12 1000 mg IM daily, and Zestril 2.5 mg daily. LABORATORY DATA: Reviewed. Blood sugar is 70. IMPRESSION AND PLAN: Cardiomyopathy with diastolic dysfunction, severe pulmonary hypertension in view of sleep apnea syndrome, has a laparotomy for hemicolectomy and gastrectomy for both colon and gastric cancer. Pulmonary point of view, doing well. Continue bronchodilator. Keep head at 45 degrees. Continue diuretics and beta-smiley. Outpatient PFT and sleep study, may benefit for pulmonary hypertensive medications. Thank you and we will follow with you. Christa Wilson MD
--- NOTE | 2017-06-17 04:59 | PN ---
DATE: SUBJECTIVE: Patient is seen and examined on the bedside, looking comfortable. No acute event overnight. Denies nausea, vomiting, diarrhea. No abdominal pain. No GI bleeding. No fever. No chills. Got intra-articular injection in the left wrist. Drinking GoLYTELY, getting prepared for colonoscopy tomorrow. PHYSICAL EXAMINATION: VITAL SIGNS: Temperature 97.6, pulse 53, respiratory rate 20, blood pressure 131/68, pulse oximetry 99. HEENT: Head normocephalic, atraumatic. Eyes PERRLA. Extraocular muscles intact. Conjunctivae clear. Nose patent. Mucous membrane moist. NECK: Supple. No carotid bruit. No JVD or thyromegaly. CHEST: Bilaterally symmetrical. HEART: S1 and S2 positive. LUNGS: Clear to auscultation. ABDOMEN: Soft. Bowel sounds positive. No organomegaly. EXTREMITIES: No edema. No cyanosis. NEUROLOGICAL: Patient is awake and alert. Moving all 4 extremities. No focal deficits. MEDICATIONS: Tylenol, B12, Pepcid, Lasix, Neurontin, insulin, Zestril, Lopressor, eye drops. LABORATORY DATA: White blood cells 7.3, hemoglobin 10.4, hematocrit 32.2, platelets 182. Sodium 140, potassium 3.9, BUN 23, creatinine 1.4, glucose 90. ASSESSMENT AND PLAN: Ms. Viry Grant, 81-year-old female with anemia, renal insufficiency with history of gastric cancer, status post partial gastrectomy and colon cancer, status post right hemicolectomy. Came with swelling of the legs. Tomorrow, patient is going for colonoscopy and endoscopy. N.p.o. after breakfast tomorrow. Bowel preparation, on GoLYTELY. Accordingly to Dr. De La Paz, consider PET scan. Cardiomyopathy with diastolic dysfunction, severe pulmonary hypertension, sleep apnea syndrome, history of laparotomy. According to Dr. Wilson, maybe patient will have to start on Letairis and sildenafil as outpatient after pulmonary function test and after sleep study. Fall precautions. Discussion done with the patient. Appreciated input of Dr. Wilson, Dr. Beth, Dr. De La Paz, and Dr. Odom. We will follow up. Alannah Nuno MD
[2017-06-17 07:24] LABS: BASO # 0.01 K/mm3 (0.0-2.0); BASO % 0.1 % (0.0-3.0); EOS # 0.1 (0.0-0.7); EOS % 1.7 % (1.5-5.0); GRAN # 5.58 (1.4-6.5); GRAN % 68.1 % (50.0-68.0); HEMOGLOBIN 11.8 g/dL (12.0-16.0); LYMPH # 1.7 (1.2-3.4); MEAN CELL VOLUME 84.3 fl (80.0-105.0); MEAN CORPUSCULAR HEMOGLOBIN 27.3 pg (25.0-35.0); MEAN CORPUSCULAR HGB CONC 32.3 g/dl (31.0-37.0); MONO # 0.8 (0.1-0.6); MONO % 9.1 % (1.0-6.0); RBC 4.33 10^6/uL (3.5-6.1); RED CELL DISTRIBUTION WIDTH 14.7 % (11.5-14.5); WHITE BLOOD COUNT 8.2 10^3/ul (4.5-11.0)
[2017-06-17 08:06] LABS: ALB/GLOB RATIO 1.2 (1.1-1.8); CALCIUM 8.7 mg/dL (8.4-10.5)
[2017-06-17] MEDS: Insulin Reg-LOW-Coverage SC SCH ×3 (09:47→21:45)
--- NOTE | 2017-06-17 11:54 | PN ---
DATE: 06/15/2017 SUBJECTIVE: The patient was seen and examined on the bedside on 06/15/2017. Actually, I dictated the note, but for technical problem, it not went through. The patient was seen on the bedside, looking comfortable. Night was unremarkable. No fever. No chills. No nausea, vomiting, diarrhea. No headache. No dizziness. Swelling of the leg is getting better, seen by Dr. Odom and he did intraarticular injections in the knees and the patient is feeling better. PHYSICAL EXAMINATION: VITAL SIGNS: Temperature 98, heart rate 53, respiratory rate 20, blood pressure 120/90, pulse oximetry 98% on room air. HEENT: Head normocephalic, atraumatic. Eyes PERRLA. Extraocular muscles intact. Conjunctivae clear. Nose patent. Mucous membrane moist. NECK: Supple. No carotid bruit. No JVD or thyromegaly. CHEST: Bilaterally symmetrical. HEART: S1 and S2 positive. LUNGS: Clear to auscultation. ABDOMEN: Soft, nontender. No organomegaly. EXTREMITIES: Trace edema. No cyanosis. NEUROLOGICAL: The patient is awake and alert. Follow simple commands. Oriented x3. LABORATORY DATA: Hemoglobin 10.4, hematocrit 32.2, white blood cells 7.3, platelets 183. Sodium 140, potassium 3.9. BUN 23, creatinine 1.4, glucose 90. MEDICATIONS: Lasix, metoprolol, Neurontin, Pepcid, Tylenol, Zestril. ASSESSMENT AND PLAN: Ms. Viry Grant, an 81-year-old lady with multiple medical problems, cardiomyopathy with diastolic dysfunction, severe pulmonary hypertension, sleep apnea syndrome, history of laparotomy with hemicolectomy and gastrectomy. Had colon and gastric cancer many years ago. Did surgery by Dr. master ESCALANTE on the case. Planning to do colonoscopy. According to Dr. Wilson, the patient should be on Letairis and sildenafil as outpatient after pulmonary function test and sleep study. Meanwhile, continue present treatment. Fall precaution. Gastrointestinal and deep venous thrombosis prophylaxis. We will follow. Alannah Nuno MD MTDIgnacio
--- NOTE | 2017-06-17 13:26 | PROCN ---
DATE: 06/16/2017 LOCATION: In 1, bed 1. The patient is being seen for carpal tunnel syndrome, left wrist, which has been bothering her for months. We injected the left wrist with Depo-Medrol 40 mg and to follow her after this injection. She does not want to have surgery yet, but we will see how she does after the cortisone shot that have helped with carpal tunnel symptoms of numbness and weakness and difficulty sleeping. We will follow her closely. FINAL DIAGNOSIS: Left wrist carpal tunnel syndrome. Adeel Odom DO
--- NOTE | 2017-06-17 13:38 | PN ---
DATE: REASON FOR CONSULTATION AND FOLLOWUP: Cardiac evaluation, admitted with bilateral lower extremity swelling, rule out CHF. SUBJECTIVE: The patient denies any chest pain, shortness of breath or any palpitations. OBJECTIVE: GENERAL: Not in apparent distress. VITAL SIGNS: Temperature afebrile, heart rate 72, blood pressure 146/77. HEENT: PERRLA, intact. NECK: Supple. No carotid bruit or thyromegaly. CHEST: Clear to auscultation. HEART: S1 and S2, regular. ABDOMEN: Soft. EXTREMITIES: Clubbing and cyanosis negative. LABORATORY DATA: Blood workup as follows: WBC 8.2, hemoglobin 11.8, hematocrit 36.5, platelet count 189. Chemistry shows sodium 144, potassium 3.9, chloride 99, carbon dioxide 33, anion gap of 16. BUN 25, creatinine 1.2. IMPRESSION: Obesity with increased body mass index of 41.3 kg/m2, leg swelling improved, no evidence of congestive heart failure. The patient's last echo done day before yesterday on 06/12/2017, that showed ejection fraction of 55% to 60%, right ventricle mild to moderately dilated, trace aortic regurgitation, mild aortic sclerosis versus mild aortic stenosis, trace mitral regurgitation, moderate tricuspid regurgitation, right ventricular systolic pressure of 71 consistent with moderate pulmonary hypertension, [id number] pulmonary insufficiency, no evidence of acute myocardial infarction. RECOMMENDATIONS: Continue gentle diuretics, monitor electrolytes, continue low-dose beta-smiley, the patient on KAREN inhibitors, the patient is being prepped for colonoscopy. CV status is stable, no anginal symptoms, no arrhythmia. We will follow with you. Thank you Dr. Nuno for providing us the opportunity in taking care of the patient, Viry Grant. Christa Beth MD
[2017-06-17] MEDS ORDERED: Propofol 10 mg/ml Inj (20 ML) ONE (18:02)
[2017-06-17] MEDS ORDERED: Etomidate 20 mg/10ml Inj IV ONE (18:03)
[2017-06-17] MEDS ORDERED: Atropine 0.4 mg/ml Inj (1 mL) ONE (18:39)
[2017-06-17] MEDS ORDERED: Sodium Chloride 0.9% 1,000 ML IV SCH (19:15)
[2017-06-17] MEDS: Latanoprost 2.5 ml Opht Soln OU SCH (21:47)
--- NOTE | 2017-06-18 04:23 | PN ---
DATE: REFERRING PHYSICIAN: Alannah Nuno MD SUBJECTIVE: The patient is sitting up in a chair. Night was unremarkable. Feels little better. Decreased leg swelling. Still short of breath. No chest pain, nausea, no vomiting. OBJECTIVE: GENERAL: In no acute distress. VITAL SIGNS: Temperature is 98, heart rate is 68, respiratory rate is 18, blood pressure 185/85, pulse ox 100% room air. HEENT: Moist mucous membranes. Crowded airway. Mallampati score is 4. NECK: Supple. No JVD. LUNGS: Have fair airflow with rhonchi. HEART: S1 and S2. ABDOMEN: Soft and nontender. No organomegaly. EXTREMITIES: No edema. NEUROLOGICAL: Awake and alert. Follows simple command. MEDICATION: The patient is on insulin coverage, Lasix 40 mg twice a day, metoprolol tartrate 12.5 mg twice a day, gabapentin 400 mg three times a day, Pepcid 20 mg at bedtime, IV fluid normal saline 100 mL per hour, Tylenol p.r.n. basis, vitamin B 26823 mcg daily, Xalatan ophthalmic solution at bedtime, Zestril 2.5 mg daily. LABORATORY DATA: Shows hemoglobin 11.8, hematocrit 36.8, WBC 8.2, platelet is 189. Sodium 144, potassium 3.9, chloride 99, bicarbonate 33, BUN 25, creatinine 1.2, glucose 84, calcium 8.7, phosphorus 3.5, magnesium 2, AST 27, ALT 31, alk phos is 90. Albumin is 4. IMPRESSION AND PLAN: Cardiomyopathy with diastolic dysfunction, severe pulmonary hypertension, sleep apnea syndrome, history of laparotomy, hemicolectomy and gastrectomy colon cancer and gastric cancer, activities of daily living dysfunction. Pulmonary point of view, she is doing okay. 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 Outpatient sleep study and pulmonary function test. Followup labs the morning. Thank you and we will follow with you. Christa Wilson MD
--- NOTE | 2017-06-18 07:40 | PROCN ---
DATE: 06/17/2017 PROCEDURE REPORT LOCATION: In room 571, bed 1. I have seen her several times for arthritis. We injected the right knee with Depo-Medrol, feels a lot better. We injected her left wrist for carpel tunnels Depo-Medrol, being chronic and does not feel 100% better yet and now she has advanced osteoarthritis for her left knee, so we also to inject her left knee with Depo-Medrol to help her ambulate better and will do therapy to walk with a walker. Surgery may not be a good option because she does not appear to be to comprehend proper physical therapy requirements after a total knee surgery and her left wrist carpal tunnel is chronic and may not get better even with open release, but she may not understand that she will get 100% results whatever is done. FINAL DIAGNOSES: Osteoarthritis, left knee injected today which is 06/17/2017. Adeel Odom DO
[2017-06-18 07:42] LABS: ALB/GLOB RATIO 1.2 (1.1-1.8); ALBUMIN 3.7 g/dL (3.0-4.8); CALCIUM 8.4 mg/dL (8.4-10.5)
[2017-06-18] MEDS: Insulin Reg-LOW-Coverage SC SCH ×5 (07:48→21:56)
--- NOTE | 2017-06-18 08:50 | CP.PCM.PN ---
Subjective - Date & Time of Evaluation Date of Evaluation: 06/18/17 Time of Evaluation: 09:35 - Subjective Subjective: GI Progress note. Dr. De La Paz Pt seen and examined at bedside. No acute events overnight. Denies any new complaints. States that her leg pain is improving. No F/C. No N/V/D. Tolerating diet. Objective - Vital Signs/Intake and Output Vital Signs (last 24 hours): Temp Pulse Resp BP Pulse Ox 98.3 F 68 15 185/85 H 100 06/17/17 16:53 06/17/17 16:53 06/17/17 16:53 06/17/17 21:45 06/17/17 16:53 Intake and Output: 06/18/17 06/18/17 06:59 18:59 Intake Total 840 Balance 840 - Medications Medications: Current Medications Acetaminophen (Tylenol 325mg Tab) 650 mg PO Q4H PRN PRN Reason: pain fever Cyanocobalamin (Vitamin B12 1000 Mcg/Ml Inj) 1,000 mcg IM DAILY [facility] Last Admin: 06/17/17 09:53 Dose: 1,000 mcg Famotidine (Pepcid) 20 mg PO HS [facility] Last Admin: 06/17/17 21:45 Dose: 20 mg Furosemide (Lasix) 40 mg IVP Q12 [facility] Last Admin: 06/17/17 21:45 Dose: 40 mg Gabapentin (Neurontin) 400 mg PO TID [facility] PRN Reason: Protocol Last Admin: 06/17/17 21:46 Dose: 400 mg Sodium Chloride (Sodium Chloride 0.9%) 1,000 mls @ 100 mls/hr IV .Q10H [facility] Last Admin: 06/17/17 21:47 Dose: Not Given Insulin Human Regular (Humulin R Low) 0 units SC ACHS [facility] PRN Reason: Protocol Last Admin: 06/18/17 07:49 Dose: Not Given Latanoprost (Xalatan Opht) 1 ml OU HS [facility] Last Admin: 06/17/17 21:47 Dose: 1 ml Lisinopril (Zestril) 2.5 mg PO DAILY [facility] Last Admin: 06/17/17 09:51 Dose: 2.5 mg Metoprolol Tartrate (Lopressor) 12.5 mg PO BID [facility] Last Admin: 06/17/17 21:46 Dose: 12.5 mg Timolol Maleate (Timoptic 0.5% Ophth Soln) 1 drop OD BID [facility] Last Admin: 06/18/17 07:50 Dose: Not Given - Labs Labs: 06/17/17 07:00 06/18/17 07:10 PT 11.2 SECONDS (9.4-12.5) 06/11/17 21:26 INR 0.98 (0.93-1.08) 06/11/17 21:26 APTT 21.0 Seconds (25.1-36.5) L 06/11/17 21:26 - Constitutional Appears: Well, Non-toxic, No Acute Distress - Head Exam Head Exam: ATRAUMATIC, NORMAL INSPECTION, NORMOCEPHALIC - Eye Exam Eye Exam: EOMI, Normal appearance - ENT Exam ENT Exam: Mucous Membranes Moist - Respiratory Exam Respiratory Exam: NORMAL BREATHING PATTERN. absent: Accessory Muscle Use, Respiratory Distress - Cardiovascular Exam Cardiovascular Exam: RRR. absent: JVD - GI/Abdominal Exam GI & Abdominal Exam: Soft. absent: Distended, Firm, Guarding, Tenderness, Rebound - Neurological Exam Neurological Exam: Alert, Awake, Oriented x3 Assessment and Plan - Assessment and Plan (Free Text) Assessment: 81yo F with PMHx of Gastric CA s/p partial gastrectomy and Colon CA s/p right hemicolectomy. Here with progressive swelling, weakness of legs - S/p EGD on 06/17/17 and gastric polyp biopsies. S/P Colonoscopy 06/17/17, no lesions appreciated. Plan: - Diet as tolerated - consider repeat PET scan as out-patient - f/u Pathology Further recs as per Dr. Brain Teran PGY1
--- NOTE | 2017-06-18 14:32 | PN ---
DATE: 06/18/2017 LOCATION: The patient is in room 565, bed 1. REASON FOR CONSULTATION AND FOLLOWUP: Cardiac evaluation, admitted with bilateral lower extremity swelling, rule out CHF. SUBJECTIVE: The patient is sitting in chair comfortably without any chest pain, shortness of breath, or palpitation. PHYSICAL EXAMINATION: VITAL SIGNS: Blood pressure 150/83, respirations 17, pulse 63, patient is afebrile. HEENT: Head is normocephalic. Eyes: Pupils normal. Conjunctivae normal. Nose and throat normal. NECK: JVP low. Carotids equal. THORAX: AP diameter normal. LUNGS: Clear. CARDIOVASCULAR: S1 and S2. ABDOMEN: Soft. No tenderness. No organomegaly. Bowel sounds normal. EXTREMITIES: No clubbing. No cyanosis. LABORATORY DATA: WBC 8.2, hemoglobin 11.8, hematocrit 36.5, platelet 189. Sodium 142, potassium 4.1, BUN 27, creatinine 1.4, sugar 93. AST and ALT are normal. Total protein and albumin are normal. The patient had a colonoscopy, which showed diverticulosis. The patient had an esophagogastroduodenoscopy, which showed hiatal hernia and gastric and also fundic polypoid lesion, and the patient had biopsies. IMPRESSION: The patient had an echocardiogram done on 06/12/2017 which showed ejection fraction of 55% to 60%, mild to moderately dilated right ventricle, trace aortic regurgitation, mild aortic sclerosis versus mild aortic stenosis, trace mitral regurgitation, moderate tricuspid regurgitation, right ventricular systolic pressure of 71 mmHg consistent with [id number] pulmonary hypertension, [id number] pulmonary insufficiency, no evidence of acute myocardial infarction. PLAN: The patient already underwent esophagogastroduodenoscopy and colonoscopy whose findings have been mentioned above. We will continue furosemide 40 IV every 12 hours, metoprolol 12.5 mg b.i.d., Neurontin 400 mg p.o. t.i.d., Pepcid 20 mg p.o. at bedtime, and lisinopril 2.5 mg p.o. daily. The patient can continue to have any other GI workup if needed from cardiac point of view and we will follow. Christa Askew MD
--- NOTE | 2017-06-18 15:05 | PN ---
DATE: 06/18/2017 PULMONARY PROGRESS NOTE REFERRING PHYSICIAN: Alannah Nuno MD. SUBJECTIVE: The patient is sitting up in a chair, sleepy, arousable. Night was unremarkable. No headache, no rhinitis. No nausea, no vomiting, no diarrhea. Still has leg swelling. PHYSICAL EXAMINATION: GENERAL: In no acute distress. VITAL SIGNS: Temperature is 98, heart rate 63, respiratory rate is 18, blood pressure 150/83. HEENT: Moist mucous membrane. Crowded airway. Mallampati score is 4. NECK: Supple. No JVD. LUNGS: Have a fair airflow with few rhonchi. HEART: S1 and S2. ABDOMEN: Soft, nontender, no organomegaly. EXTREMITIES: Do have edema. NEUROLOGIC: Awake, alert, follows simple commands. MEDICATIONS: She is on Lasix 40 mg twice a day, metoprolol tartrate 12.5 mg twice a day, gabapentin 400 mg three times a day, Pepcid 20 mg at bedtime, Tylenol p.r.n., vitamin B12 1000 mcg IM daily, and Zestril 2.5 mg daily. LABORATORY DATA: Shows sodium 142, potassium 4.1, chloride 100, bicarbonate 31, BUN 27, creatinine 1.4, glucose is 93. Calcium is 8.4. AST 23, ALT 28, alkaline phosphatase is 81. Albumin is 3.7. IMPRESSION AND PLAN: Cardiomyopathy with cardiac diastolic dysfunction, severe pulmonary hypertension, sleep apnea syndrome, history of laparotomy with hemicolectomy and partial gastrectomy secondary to colon cancer and gastric ulcer. Pulmonary point of view, doing okay. Continue bronchodilator. Keep head at 45 degrees. Sleep apnea precaution. 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 May benefit from rehab. Outpatient sleep study, PFT. Thank you and we will follow with you. Christa Wilson MD
[2017-06-18 15:50] VITALS: RESP 20
[2017-06-19] MEDS: Latanoprost 2.5 ml Opht Soln OU SCH (00:17)
[2017-06-19 08:04] VITALS: TEMP 98.1; O2SAT 95
[2017-06-19] MEDS: Insulin Reg-LOW-Coverage SC SCH ×3 (08:50→17:18)
--- NOTE | 2017-06-19 09:14 | PN ---
DATE: 06/17/2017 SUBJECTIVE: The patient was seen and examined in the late evening at bedside. Daughter and son were on the bedside also. Came back from endoscopies. Discussion done with Dr. De La Paz. No nausea, vomiting, diarrhea, hematuria or hematochezia. No swelling of the legs. No chest pain or palpitation. No headache, dizziness. PHYSICAL EXAMINATION: VITAL SIGNS: Temperature 98, heart rate 60, respiratory rate 18, blood pressure 185/85. HEENT: Head normocephalic, atraumatic. Eyes PERRLA. Extraocular muscles are intact. Conjunctivae clear. Nose patent. Mucous membrane moist. NECK: Supple. No carotid bruit. No JVD. No thyromegaly. CHEST: Bilaterally symmetrical. HEART: S1 and S2 positive. LUNGS: Clear to auscultation. ABDOMEN: Soft. Bowel sounds positive. No organomegaly. EXTREMITIES: No edema. No cyanosis. NEUROLOGICAL: The patient is awake and alert. Moving all 4 extremities. No focal deficits. LABORATORY DATA: Hemoglobin 11.8, hematocrit 36.3, white blood cells 8.2, platelets 189. Sodium 144, potassium 3.9. BUN 25, creatinine 1.2, glucose 84. AST 27, ALT 31. MEDICATIONS: Insulin coverage, Lasix, metoprolol, gabapentin, Pepcid, NS, Tylenol, vitamin B1, eye drops, Zestril. ASSESSMENT AND PLAN: Ms. Viry Grant, 81-year-old lady with multiple medical problems, has cardiomyopathy with diastolic dysfunction, severe pulmonary hypertension, sleep apnea syndrome, history of laparotomy, hemicolectomy, gastrectomy, colon cancer and gastric cancer. Now, went for colonoscopy, endoscopy on 06/17/2017. Discussion done with Dr. De La Paz. Colonoscopy is okay, but endoscopy shows multiple gastric ulcers and some of them like suspicious for malignancy. He sent for pathology. I have discussion done with the daughter, Yuri Grant and son and told them about Dr. De La Paz's recommendation. They agreed. The patient has pain in both knees and carpal tunnel syndrome. Dr. Odom gave injections to both knees and the wrist. Now pain is getting better. Plan is to continue diuretics, afterload reduction, sleep apnea precautions, fall precautions. Gastrointestinal and deep venous thrombosis prophylaxis. Repeat labs. We will follow. Alannah Nuno MD [facility] # [id number]
--- NOTE | 2017-06-19 09:44 | PN ---
DATE: 06/18/2017 SUBJECTIVE: The patient was seen and examined on bedside on 06/18/2017, looking comfortable. Appetite is okay. Sleep is okay. Still complaining pain in the knees and both hands. Numbness and feeling of sand in her hands. No nausea or vomiting. No hematuria or hematochezia. No swelling of the leg. No chest pain or palpitation. PHYSICAL EXAMINATION: VITAL SIGNS: Temperature 98, heart rate 63, respiratory rate 18, blood pressure 150/83. HEENT: Head normocephalic, atraumatic. Eyes PERRLA. Extraocular muscles intact. Conjunctivae clear. Nose patent. Mucous membrane moist. NECK: Supple. No carotid bruit. No JVD or thyromegaly. CHEST: Bilaterally symmetrical. HEART: S1 and S2 positive. LUNGS: Clear to auscultation. ABDOMEN: Soft. Bowel sounds positive. No organomegaly. EXTREMITIES: No edema. No cyanosis. NEUROLOGICAL: The patient is awake and alert. Moving all 4 extremities. No focal deficits. LABORATORY DATA: Sodium 142, potassium 4.1, BUN 27, creatinine 1.4, glucose 93, AST 23, ALT 28. MEDICATIONS: Lasix, metoprolol, gabapentin, Pepcid, vitamin B12, Zestril. ASSESSMENT AND PLAN: Ms. Viry Grant, 81-year-old lady with multiple medical problem, has cardiomyopathy with diastolic dysfunction, severe pulmonary hypertension, sleep apnea syndrome, history of laparotomy with hemicolectomy and partially gastrectomy secondary to colon cancer and stomach cancers, now went for enteroscopy and colonoscopy. Enteroscopy shows multiple stomach polyps. Some polyps looks suspicious of malignancy. Dr. De La Paz did biopsy, waiting for the pathology. Sleep apnea precautions. Continue diuretics. Afterload reduction. Fall precautions. Gastrointestinal and deep venous thrombosis prophylaxis. The patient got intraarticular injection in both knees and wrist from Dr. Odom. After that, she is feeling better. Seen by the Cardiology also. Pulmonary hypertension. No evidence of acute myocardial infarction. Continue Lasix, Neurontin, Pepcid. We will follow up. Alannah Nuno MD
[2017-06-19 10:47] VITALS: BP 100/50; PULSE 49
--- NOTE | 2017-06-19 12:58 | PN ---
DATE: 06/19/2017 LOCATION: The patient in room 565, bed 1. REASON FOR CONSULTATION AND FOLLOWUP: Cardiac evaluation, admitted with bilateral lower extremity swelling, rule out CHF. SUBJECTIVE: The patient is lying flat in bed without any chest pain, shortness of breath, palpitation. PHYSICAL EXAMINATION: VITAL SIGNS: Blood pressure 100/50, respirations 20, pulse 60, temperature 98.1. HEENT: Head is normocephalic. Eyes: Pupils normal. Conjunctivae normal. Nose and throat normal. NECK: JVP low. Carotids equal. THORAX: AP diameter normal. LUNGS: No rales. CARDIOVASCULAR: S1 and S2. ABDOMEN: Soft. Bowel sounds normal. EXTREMITIES: No clubbing. No cyanosis. LABORATORY DATA: WBC 8.2, hemoglobin 11.8, hematocrit 36.5, platelet 189. Sodium 142, potassium 4.1, BUN 27, creatinine 1.4, random sugar 104. AST, ALT, total protein, albumin normal. Echocardiogram done on 06/12/2017 showed normal LV ejection fraction of 55-60%. Mild to moderately dilated right ventricle, trace aortic regurg, mild aortic sclerosis versus mild aortic stenosis, trace mitral regurg, moderate tricuspid regurg, RV systolic pressure was 71 mmHg consistent with moderate to significant pulmonary hypertension, mild to moderate pulmonary insufficiency. ASSESSMENT: The patient's edema of the legs is improving. Pulmonary hypertension, sleep apnea syndrome, history of laparotomy with hemicolectomy and partial gastrectomy secondary to colon cancer and gastric ulcer. Edema of legs is improving. PLAN: The patient is getting IV Lasix 40 every 12 hours, metoprolol 12.5 mg b.i.d., Neurontin 400 mg t.i.d., lisinopril 2.5 mg daily. We will continue present therapy. We will follow. Christa Askew MD
--- NOTE | 2017-06-19 15:21 | CP.PCM.CON ---
<Shital Nieves - Last Filed: 06/19/17 15:30> History of Present Illness - History of Present Illness History of Present Illness: Podiatry Consult Note - Drs. Byrd/Garth 81 year old female patient with PMHx of colon cancer, bowel resection, TIA seen and evaluated at bedside concerning bilateral lower extremity edema. Patient resting in bed comfortably, NAD. Patient denies any pain to her LE today. Patient also complains of thickened elongated nails and requests them to be debrided today; states she is unable to trim her nails herself. Patient denies of having any recent trauma/injury to the feet. Denies of having any recent F/N/ V/C/SOB/CP/headache. Offers no other pedal complaints at this time. 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,) - GENITOURINARY/GYNECOLOGICAL Hx Genitourinary Disorders: Yes - PSYCHIATRIC Hx Substance Use: No - SURGICAL HISTORY Hx Surgeries: Yes - ANESTHESIA Hx Anesthesia Reactions: No Hx Malignant Hyperthermia: No Meds Home Medications: Home Medication List Medication Instructions Recorded Confirmed Type Acetaminophen [Tylenol 325mg tab] 650 mg PO Q4H PRN tab 06/19/17 Rx Famotidine [Pepcid] 20 mg PO HS tab 06/19/17 Rx Ferrous Sulfate [Feosol] 325 mg PO TID #30 tab 06/19/17 Rx Furosemide [Lasix] 20 mg PO DAILY #30 tab 06/19/17 Rx Gabapentin [Neurontin] 400 mg PO TID cap 06/19/17 Rx Latanoprost 0.005% Opht [Xalatan 1 ml OU HS bottle 06/19/17 Rx Opht] Lisinopril [Zestril] 2.5 mg PO DAILY tab 06/19/17 Rx Timolol 0.5% Ophth [Timoptic 0.5% 1 drop OD BID bottle 06/19/17 Rx Ophth Soln] Allergies/Adverse Reactions: Allergies Allergy/AdvReac Type Severity Reaction Status Date / Time No Known Allergies Allergy Verified 06/11/17 19:31 - Medications Medications: Current Medications Acetaminophen (Tylenol 325mg Tab) 650 mg PO Q4H PRN PRN Reason: pain fever Cyanocobalamin (Vitamin B12 1000 Mcg/Ml Inj) 1,000 mcg IM DAILY [facility] Last Admin: 06/19/17 10:35 Dose: Not Given Famotidine (Pepcid) 20 mg PO HS [facility] Last Admin: 06/18/17 22:05 Dose: 20 mg Furosemide (Lasix) 40 mg IVP Q12 [facility] Last Admin: 06/19/17 10:39 Dose: Not Given Gabapentin (Neurontin) 400 mg PO TID [facility] PRN Reason: Protocol Last Admin: 06/19/17 14:23 Dose: 400 mg Insulin Human Regular (Humulin R Low) 0 units SC ACHS [facility] PRN Reason: Protocol Last Admin: 06/19/17 13:08 Dose: Not Given Latanoprost (Xalatan Opht) 1 ml OU HS [facility] Last Admin: 06/19/17 00:17 Dose: Not Given Lisinopril (Zestril) 2.5 mg PO DAILY [facility] Last Admin: 06/19/17 10:40 Dose: Not Given Metoprolol Tartrate (Lopressor) 12.5 mg PO BID [facility] Last Admin: 06/19/17 10:39 Dose: Not Given Timolol Maleate (Timoptic 0.5% Ophth Soln) 1 drop OD BID [facility] Last Admin: 06/19/17 10:44 Dose: 1 drop Physical Exam - Constitutional Appears: Well, Non-toxic, No Acute Distress - Extremities Exam Additional comments: VASC- DP and PT pulses are palpable 1/4. Temperature gradient warm to cool b/l. CFT brisk to digits x10. +1 pitting edema noted to bilateral lower extremities. DERM- No open lesions noted. Moderate xerosis noted b/l. Nails 1-5 b/l are thickened, elongated, and incurvated with the presence of subungual debris. NEURO- Gross sensation intact bilaterally. ORTHO- No pain on palpation to bilateral LE. No pain on palpation to mycotic nails x10. - Neurological Exam Neurological exam: Alert, Oriented x3 - Psychiatric Exam Psychiatric exam: Normal Affect, Normal Mood Results - Vital Signs Recent Vital Signs: Last Vital Signs Temp 98.1 F 06/19/17 08:03 Pulse 49 L 06/19/17 10:40 Resp 20 06/19/17 08:03 BP 100/50 L 06/19/17 10:40 Pulse Ox 95 06/19/17 08:03 - Labs Result Diagrams: 06/17/17 07:00 06/18/17 07:10 Labs: Laboratory Results - last 24 hr 06/18/17 06/18/17 06/19/17 15:53 21:43 07:12 POC Glucose (mg/dL) 84 133 H 92 06/19/17 11:44 POC Glucose (mg/dL) 104 Assessment & Plan - Assessment and Plan (Free Text) Assessment: 81 year old female patient with bilateral LE edema and elongated nails Plan: Patient seen and evaluated with attending, Dr. Byrd Afebrile no leukocytosis Legs appear stable at this time Will order LacHydrin for BID applications Nails debrided in thickness and length without incident Stable per podiatry standpoint Thank you for the consult, please reconsult podiatry as needed - Date & Time Date: 06/19/17 Time: 15:32 <Ta Byrd - Last Filed: 06/20/17 10:40> Results - Vital Signs Recent Vital Signs: Last Vital Signs Temp 98.1 F 06/19/17 08:03 Pulse 49 L 06/19/17 10:40 Resp 20 06/19/17 08:03 BP 100/50 L 06/19/17 10:40 Pulse Ox 95 06/19/17 08:03 - Labs Result Diagrams: 06/17/17 07:00 06/18/17 07:10 Labs: Laboratory Results - last 24 hr 06/19/17 06/19/17 11:44 16:08 POC Glucose (mg/dL) 104 125 H Attending/Attestation - Attestation I have personally seen and examined this patient.: Yes I have fully participated in the care of the patient.: Yes I have reviewed all pertinent clinical information: Yes
[2017-06-19] MEDS ORDERED: Ammonium Lactate 12% Lotion (225 g) EXT SCH (15:45)
--- NOTE | 2017-06-19 17:58 | CP.PCM.PN ---
Subjective - Date & Time of Evaluation Date of Evaluation: 06/19/17 Time of Evaluation: 11:15 - Subjective Subjective: Seen and examined at the bedside earlier today, chart review. Patient with no new complaints or acute overnight events recorded. Patient had formed bowel movement yesterday nor reports of bleeding. Endoscopy biopsy still pending. Objective - Vital Signs/Intake and Output Vital Signs (last 24 hours): Temp Pulse Resp BP Pulse Ox 98.1 F 49 L 20 100/50 L 95 06/19/17 08:03 06/19/17 10:40 06/19/17 08:03 06/19/17 10:40 06/19/17 08:03 Intake and Output: 06/19/17 06/19/17 06:59 18:59 Intake Total 480 Balance 480 - Medications Medications: Current Medications Acetaminophen (Tylenol 325mg Tab) 650 mg PO Q4H PRN PRN Reason: pain fever Cyanocobalamin (Vitamin B12 1000 Mcg/Ml Inj) 1,000 mcg IM DAILY [facility] Last Admin: 06/19/17 10:35 Dose: Not Given Famotidine (Pepcid) 20 mg PO HS [facility] Last Admin: 06/18/17 22:05 Dose: 20 mg Furosemide (Lasix) 40 mg IVP Q12 [facility] Last Admin: 06/19/17 10:39 Dose: Not Given Gabapentin (Neurontin) 400 mg PO TID [facility] PRN Reason: Protocol Last Admin: 06/19/17 17:22 Dose: 400 mg Insulin Human Regular (Humulin R Low) 0 units SC ACHS [facility] PRN Reason: Protocol Last Admin: 06/19/17 17:18 Dose: Not Given Lactic Acid (Lac-Hydrin 12% Lotion (225 G)) 0 gm EXT DAILY [facility] Last Admin: 06/19/17 17:22 Dose: 1 applic Latanoprost (Xalatan Opht) 1 ml OU HS [facility] Last Admin: 06/19/17 00:17 Dose: Not Given Lisinopril (Zestril) 2.5 mg PO DAILY [facility] Last Admin: 06/19/17 10:40 Dose: Not Given Timolol Maleate (Timoptic 0.5% Ophth Soln) 1 drop OD BID [facility] Last Admin: 06/19/17 10:44 Dose: 1 drop - Labs Labs: 06/17/17 07:00 06/18/17 07:10 PT 11.2 SECONDS (9.4-12.5) 06/11/17 21:26 INR 0.98 (0.93-1.08) 06/11/17 21:26 APTT 21.0 Seconds (25.1-36.5) L 06/11/17 21:26 - Constitutional Appears: No Acute Distress - Head Exam Head Exam: NORMOCEPHALIC - Eye Exam Eye Exam: Normal appearance. absent: Scleral icterus - ENT Exam ENT Exam: Mucous Membranes Moist - Neck Exam Neck Exam: Normal Inspection - Respiratory Exam Respiratory Exam: NORMAL BREATHING PATTERN. absent: Respiratory Distress - Cardiovascular Exam Cardiovascular Exam: +S1, +S2 - GI/Abdominal Exam GI & Abdominal Exam: Soft, Normal Bowel Sounds. absent: Guarding, Tenderness, Rebound - Extremities Exam Extremities Exam: absent: Calf Tenderness, Pedal Edema - Neurological Exam Neurological Exam: Alert, Awake, Oriented x3 - Skin Skin Exam: Dry, Warm Assessment and Plan - Assessment and Plan (Free Text) Assessment: Assessment: Status post endoscopy and colonoscopy found to have gastric polyp and diverticulosis no colonic lesions noted. History of gastric cancer status post partial gastrectomy History of colon cancer status post right hemicolectomy Lower extremity edema/weakness Plan: Continue diet as tolerated Follow-up endoscopic biopsies continue Pepcid Plan for repeat PET scan outpatient Seen and discussed with Dr. De La Paz.
== END 2017-06-19 22:05 | disposition home or self-care (01) | DRG 74 ==
LOC: ED 19:15 → ERH 23:20 → 5RSO 06-12 01:24 → OBSVTOIN 06-13 15:34 → 5RNO 06-17 21:01
PROVIDERS: ADMIT Internal Medicine; ATTEND Internal Medicine
PROC: 3E0U33Z Introduction of Anti-inflammatory into Joints, Percutaneous Approach (ICD-10-PCS; 2017-06-16)
PROC: 3E0U33Z Introduction of Anti-inflammatory into Joints, Percutaneous Approach (ICD-10-PCS; 2017-06-17)
PROC: 0DB68ZX Excision of Stomach, Via Natural or Artificial Opening Endoscopic, Diagnostic (ICD-10-PCS; principal; 2017-06-17 15:30)
PROC: 0DJD8ZZ Inspection of Lower Intestinal Tract, Via Natural or Artificial Opening Endoscopic (ICD-10-PCS; 2017-06-17 15:30)
PROC: 0HBRXZZ Excision of Toe Nail, External Approach (ICD-10-PCS; 2017-06-19)
DX: G62.9 Polyneuropathy, unspecified (principal); I42.9 Cardiomyopathy, unspecified; Z68.41 Body mass index [BMI] 40.0-44.9, adult; R60.0 Localized edema; I27.20 Pulmonary hypertension, unspecified; D64.9 Anemia, unspecified; M17.0 Bilateral primary osteoarthritis of knee; N28.9 Disorder of kidney and ureter, unspecified; I36.1 Nonrheumatic tricuspid (valve) insufficiency; G47.30 Sleep apnea, unspecified; K25.9 Gastric ulcer, unspecified as acute or chronic, without hemorrhage or perforation; K31.7 Polyp of stomach and duodenum; I10 Essential (primary) hypertension; K57.30 Diverticulosis of large intestine without perforation or abscess without bleeding; K64.8 Other hemorrhoids; E66.9 Obesity, unspecified; K44.9 Diaphragmatic hernia without obstruction or gangrene; G56.03 Carpal tunnel syndrome, bilateral upper limbs; K59.00 Constipation, unspecified; K29.50 Unspecified chronic gastritis without bleeding; E11.9 Type 2 diabetes mellitus without complications; Z91.19 Patient's noncompliance with other medical treatment and regimen; Z86.73 Personal history of transient ischemic attack (TIA), and cerebral infarction without residual deficits; Z85.028 Personal history of other malignant neoplasm of stomach; Z85.038 Personal history of other malignant neoplasm of large intestine; Z90.3 Acquired absence of stomach [part of]; Z90.49 Acquired absence of other specified parts of digestive tract